=== PATIENT | female | born 1930 | race Caucasian/White ===

== ENCOUNTER 2017-12-23 01:37 | Inpatient (IN) ==
[2017-12-23] MEDS ORDERED: Ipratropium/Albuterol Neb 3 ML IH ONE (01:46)
[2017-12-23 02:13] LABS: ABG Base Excess 1 mEq/L (-2 to 3); ABG HCO3 26 mEq/L (21-27); ABG Oxygen Saturation 98 % (95-98); ABG PCO2 43 mmHg (35-45); ABG PO2 100 mmHg (85-104); ABG TCO2 28 mEq/L (20-26)
[2017-12-23 02:30] LABS: Bilirubin,Urine Negative (Negative); Blood,Urine Negative (Negative); Clarity,Urine Cloudy (Clear); Color,Urine Yellow (Yellow); Glucose,Urine (UA) Normal (Normal); Ketones,Urine Negative (Negative); Leukocyte Esterase,Urine Negative (Negative); Nitrite,Urine Negative (Negative); PH,Urine 6.5 pH Units (5.0-8.0); Protein,Urine 100 mg/dL (Neg-Trace); Specific Gravity,Urine 1.022 (1.010-1.025); Urobilinogen,Urine Normal (Normal)
[2017-12-23 02:32] LABS: Hyaline Casts,Urine Few per lpf (None-Few); RBC,Urine 0-3 per hpf (0-3); Squamous Epithelial Cell,Urine Many per lpf (None-Few)
[2017-12-23 02:34] LABS: Basophils % 0.1 %; Hematocrit 41.4 % (35.3-44.9); Hemoglobin 13.5 g/dL (11.5-15.4); Immature Granulocytes % 0.3 % (0-4); Lymphocytes % 6.6 %; Mean Corpuscular HGB Conc 32.6 g/dL (31.6-35.5); Mean Corpuscular Hemoglobin 28.8 pg (28.0-33.3); Mean Corpuscular Volume 88.5 fL (83.0-100.0); Mean Platelet Volume 12.1 fL (9.4-12.4); Monocytes # 2.4 K/mcL (0.0-1.3); Monocytes % 15.7 %; Neutrophils # 11.8 K/mcL (1.6-8.9); Platelet Count 190 K/mcL (140-400); Red Blood Count 4.68 M/mcL (3.82-4.97); Segmented Neutrophils % 77.3 %
[2017-12-23 02:42] LABS: Bacteria,Urine Many per hpf (None-Few)
[2017-12-23 02:49] LABS: Albumin 3.5 g/dL (3.5-5.7); Bilirubin,Total 0.3 mg/dL (0.3-1.0); Calcium 8.8 mg/dL (8.6-10.3); Globulin 3.4 g/dL (2.4-3.5); Potassium 4.2 mEq/L (3.5-5.1); Total Protein 6.9 g/dL (6.4-8.9)
[2017-12-23] MEDS ORDERED: Cefepime HCl 2,000 MG in Water for inj. (sterile) 20 ML IVP STA (04:28)
[2017-12-23] MEDS ORDERED: Levofloxacin 750 MG/150 ML 750 MG/150 ML BAG IVPB STA (04:28)
[2017-12-23] MEDS ORDERED: Vancomycin 1,000 MG in D5% in Water 250 ML IVPB ONE (04:33)
[2017-12-23] MEDS ORDERED: Aspirin 81 MG TAB.CHEW PO STA (04:46)
--- NOTE | 2017-12-23 04:46 | Emergency Department Note ---
Disposition Clinical Impression: Hypoxia, Influenza A Pneumonia Qualifiers: Pneumonia type: due to unspecified organism Laterality: left Lung location: lower lobe of lung Qualified Code(s): J18.1 - Lobar pneumonia, unspecified organism Disposition: Admitted As Inpatient Condition: Fair Referrals: Rommel España MD [Primary Care Provider] - Forms: ED Satisfaction Letter General Adult HPI - General Chief complaint: ED Shortness of Breath/Dyspnea Stated complaint: NU Time Seen by Provider: 12/23/17 01:41 Source: patient, family, EMS Mode of arrival: EMS Limitations: no limitations Nursing Notes Reviewed: Yes Vital Signs Reviewed: Yes - History of Present Illness HPI Narrative: Patient presents via EMS for evaluation of confusion as well as hypoxia. Patient does not normally wear oxygen and has initial pulse ox of 80%. Patient is normally alert and very talkative. Patient has been having increasing sleepiness and fatigue. Daughter is at bedside who states that she visits on a daily basis to the alf. Over the last 2 days the patient has had worsening overall symptoms. No specific productive cough. Just generalized unwell feeling with worsening respiratory status. Pain Scale: 0 - Related Data Home Medications Medication Instructions Recorded Confirmed Aspirin 81 mg PO DAILY 09/23/15 09/23/15 Losartan [Cozaar] 25 mg PO DAILY 09/23/15 09/23/15 Metoprolol [Lopressor] 50 mg PO BID 09/23/15 09/23/15 Divalproex (12 HR) [Depakote (12 250 mg PO DAILY 03/28/16 03/28/16 HR)] Donepezil HCl [Donepezil HCl Odt] 5 mg PO DAILY 03/28/16 03/28/16 hydrALAZINE [HydrALAZINE] 25 mg PO DAILY 03/28/16 03/28/16 risperiDONE [RisperDAL] 0.25 mg PO DAILY 03/28/16 03/28/16 Previous Rx's Medication Instructions Recorded Ciprofloxacin [Cipro] 500 mg PO BID #20 tablet 03/28/16 Allergies Allergy/AdvReac Type Severity Reaction Status Date / Time NSAIDS (Non-Steroidal Allergy See Verified 12/23/17 01:50 Anti-Inflamma Comments Penicillins Allergy See Verified 12/23/17 01:50 Comments Sulfa (Sulfonamide Allergy Hives Verified 12/23/17 01:50 Antibiotics) Review of Systems: CONSTITUTIONAL: Fatigue and weakness and chills No weight loss, fever HEENT: Eyes: No visual changes. Ears, Nose, Throat: No hearing loss, difficulty talking or unable to swallow. SKIN: No rash or itching. CARDIOVASCULAR: No chest pain, chest pressure or chest discomfort. No palpitations or edema. RESPIRATORY: Shortness of breath GASTROINTESTINAL: No anorexia, nausea, vomiting or diarrhea. No abdominal pain or blood. GENITOURINARY: No burning on urination or hematuria. NEUROLOGICAL: No headache, dizziness, syncope, paralysis, ataxia, numbness or tingling in the extremities. No change in bowel or bladder control. MUSCULOSKELETAL: No muscle pain, back pain, joint pain or stiffness. Past Medical History - Past Medical History Medical history: Reports: cancer, dementia, hypertension, other Surgical history: Reports: breast surgery, hysterectomy Psychiatric history: Reports: no psych history MANAGER TREASURY history: Reports: no MANAGER TREASURY history - Social History Smoking Status: Never smoker Alcohol use: Reports: none Drug use: Reports: none Physical Exam General: Arouses to verbal cues Head: Normocephalic Atraumatic Eyes: PERRL, EOMI ENT: Airway patent, no stridor Neck: supple, no meningismus Chest: Mild rhonchi Cardiac: Regular rhythm, no murmurs, rubs or gallops Abdomen: soft, nontender, nondistended; no guarding, rebound, or tenderness to percussion Musculoskeletal: Calves symmetric, nontender, no palpable cord Skin: No rash, normal skin tone Neuro: Alert and Oriented to person. No focal deficit, - General General appearance: lethargic Course - Reevaluation(s) Reevaluation #1: Influenza positive. Tamiflu given. Chest x-ray with concern for left lower lobe pneumonia. Elevated white count. Patient is from alf and broad- spectrum antibiotics have been given. Blood cultures obtained. Patient has elevated troponin with no acute EKG changes and no chest pain. Aspirin has been given. - Consultations Consultation #1: Discussed with Dr. Queen. Patient accepted for admission. Vital Signs Temperature 97.8 F 12/23/17 01:41 Pulse Rate 69 12/23/17 01:41 Respiratory Rate 19 12/23/17 01:41 Blood Pressure 110/69 12/23/17 01:41 O2 Sat by Pulse Oximetry 95 12/23/17 01:41 Temperature 97.8 F 12/23/17 01:41 Pulse Rate 59 12/23/17 04:30 Respiratory Rate 14 12/23/17 02:17 Blood Pressure 116/70 12/23/17 04:30 O2 Sat by Pulse Oximetry 96 12/23/17 04:30 Oxygen Delivery Oxygen Delivery Nasal Cannula Medical Decision Making - Medical Records Medical records reviewed: Yes I reviewed the patient's medical records. - Lab Data Lab results reviewed: Yes I reviewed the patient's lab results. Result diagrams: 12/23/17 02:25 12/23/17 02:25 Lab Results 12/23/17 12/23/17 12/23/17 Range/Units 02:09 02:17 02:25 WBC 15.3 H (4.3-11.1) K/mcL RBC 4.68 (3.82-4.97) M/mcL Hgb 13.5 (11.5-15.4) g/dL Hct 41.4 (35.3-44.9) % MCV 88.5 (83.0-100.0) fL MCH 28.8 (28.0-33.3) pg MCHC 32.6 (31.6-35.5) g/dL RDW 13.0 (11.5-14.5) % Plt Count 190 (140-400) K/mcL MPV 12.1 (9.4-12.4) fL Immature Gran % 0.3 (0-4) % Seg Neutrophils % 77.3 % Lymphocytes % 6.6 % Monocytes % 15.7 % Eosinophils % 0.0 % Basophils % 0.1 % Neutrophils # 11.8 H (1.6-8.9) K/mcL Lymphocytes # 1.0 (0.6-4.6) K/mcL Monocytes # 2.4 H (0.0-1.3) K/mcL Eosinophils # 0.0 (0.0-0.6) K/mcL Basophils # 0.0 (0.0-0.2) K/mcL ABG pH 7.40 (7.32-7.45) pH Units ABG pCO2 43 (35-45) mmHg ABG pO2 100 (85-104) mmHg ABG HCO3 26 (21-27) mEq/L ABG Total CO2 28 H (20-26) mEq/L ABG O2 Saturation 98 (95-98) % ABG Base Excess 1 (-2 to 3) mEq/L Sodium (136-145) mEq/L Potassium (3.5-5.1) mEq/L Chloride (98-107) mEq/L Carbon Dioxide (23-29) mEq/L BUN (8-23) mg/dL Creatinine (0.60-1.20) mg/dL Est GFR ( Amer) (> 60) Est GFR (Non-Af Amer) (> 60) BUN/Creatinine Ratio (6-26) Glucose (70-105) mg/dL Calculated Osmolality (280-300) Lactic Acid (0.5-2.2) mmol/L Calcium (8.6-10.3) mg/dL Total Bilirubin (0.3-1.0) mg/dL AST (13-39) Units/L ALT (7-52) Units/L Alkaline Phosphatase (34-104) Units/L Troponin I (< 0.04) ng/mL B-Natriuretic Peptide (Less than 100) pg/mL Serum Total Protein (6.4-8.9) g/dL Albumin (3.5-5.7) g/dL Globulin (2.4-3.5) g/dL Albumin/Globulin Ratio (1.1-2.2) Urine Color Yellow (Yellow) Urine Clarity Cloudy A (Clear) Urine pH 6.5 (5.0-8.0) pH Units Ur Specific Semmes 1.022 (1.010-1.025) Urine Protein 100 H (Neg-Trace) mg/dL Urine Glucose (UA) Normal (Normal) mg/dL Urine Ketones Negative (Negative) mg/dL Urine Blood Negative (Negative) Urine Nitrite Negative (Negative) Urine Bilirubin Negative (Negative) Urine Urobilinogen Normal (Normal) mg/dL Ur Leukocyte Esterase Negative (Negative) Urine Microscopic RBC 0-3 (0-3) per hpf Urine Microscopic WBC 5-15 H (0-3) per hpf Ur Squamous Epith Cells Many H (None-Few) per lpf Urine Bacteria Many H (None-Few) per hpf Hyaline Casts Few (None-Few) per lpf Ur Culture Indicated? NO (NO) 12/23/17 12/23/17 12/23/17 Range/Units 02:25 02:25 02:25 WBC (4.3-11.1) K/mcL RBC (3.82-4.97) M/mcL Hgb (11.5-15.4) g/dL Hct (35.3-44.9) % MCV (83.0-100.0) fL MCH (28.0-33.3) pg MCHC (31.6-35.5) g/dL RDW (11.5-14.5) % Plt Count (140-400) K/mcL MPV (9.4-12.4) fL Immature Gran % (0-4) % Seg Neutrophils % % Lymphocytes % % Monocytes % % Eosinophils % % Basophils % % Neutrophils # (1.6-8.9) K/mcL Lymphocytes # (0.6-4.6) K/mcL Monocytes # (0.0-1.3) K/mcL Eosinophils # (0.0-0.6) K/mcL Basophils # (0.0-0.2) K/mcL ABG pH (7.32-7.45) pH Units ABG pCO2 (35-45) mmHg ABG pO2 (85-104) mmHg ABG HCO3 (21-27) mEq/L ABG Total CO2 (20-26) mEq/L ABG O2 Saturation (95-98) % ABG Base Excess (-2 to 3) mEq/L Sodium (136-145) mEq/L Potassium (3.5-5.1) mEq/L Chloride (98-107) mEq/L Carbon Dioxide (23-29) mEq/L BUN (8-23) mg/dL Creatinine (0.60-1.20) mg/dL Est GFR ( Amer) (> 60) Est GFR (Non-Af Amer) (> 60) BUN/Creatinine Ratio (6-26) Glucose (70-105) mg/dL Calculated Osmolality (280-300) Lactic Acid 1.5 (0.5-2.2) mmol/L Calcium (8.6-10.3) mg/dL Total Bilirubin (0.3-1.0) mg/dL AST (13-39) Units/L ALT (7-52) Units/L Alkaline Phosphatase (34-104) Units/L Troponin I 0.11 H* (< 0.04) ng/mL B-Natriuretic Peptide 287 H (Less than 100) pg/mL Serum Total Protein (6.4-8.9) g/dL Albumin (3.5-5.7) g/dL Globulin (2.4-3.5) g/dL Albumin/Globulin Ratio (1.1-2.2) Urine Color (Yellow) Urine Clarity (Clear) Urine pH (5.0-8.0) pH Units Ur Specific Semmes (1.010-1.025) Urine Protein (Neg-Trace) mg/dL Urine Glucose (UA) (Normal) mg/dL Urine Ketones (Negative) mg/dL Urine Blood (Negative) Urine Nitrite (Negative) Urine Bilirubin (Negative) Urine Urobilinogen (Normal) mg/dL Ur Leukocyte Esterase (Negative) Urine Microscopic RBC (0-3) per hpf Urine Microscopic WBC (0-3) per hpf Ur Squamous Epith Cells (None-Few) per lpf Urine Bacteria (None-Few) per hpf Hyaline Casts (None-Few) per lpf Ur Culture Indicated? (NO) 12/23/17 Range/Units 02:25 WBC (4.3-11.1) K/mcL RBC (3.82-4.97) M/mcL Hgb (11.5-15.4) g/dL Hct (35.3-44.9) % MCV (83.0-100.0) fL MCH (28.0-33.3) pg MCHC (31.6-35.5) g/dL RDW (11.5-14.5) % Plt Count (140-400) K/mcL MPV (9.4-12.4) fL Immature Gran % (0-4) % Seg Neutrophils % % Lymphocytes % % Monocytes % % Eosinophils % % Basophils % % Neutrophils # (1.6-8.9) K/mcL Lymphocytes # (0.6-4.6) K/mcL Monocytes # (0.0-1.3) K/mcL Eosinophils # (0.0-0.6) K/mcL Basophils # (0.0-0.2) K/mcL ABG pH (7.32-7.45) pH Units ABG pCO2 (35-45) mmHg ABG pO2 (85-104) mmHg ABG HCO3 (21-27) mEq/L ABG Total CO2 (20-26) mEq/L ABG O2 Saturation (95-98) % ABG Base Excess (-2 to 3) mEq/L Sodium 135 L (136-145) mEq/L Potassium 4.2 (3.5-5.1) mEq/L Chloride 102 (98-107) mEq/L Carbon Dioxide 24 (23-29) mEq/L BUN 35 H (8-23) mg/dL Creatinine 1.43 H (0.60-1.20) mg/dL Est GFR ( Amer) 42 L (> 60) Est GFR (Non-Af Amer) 35 L (> 60) BUN/Creatinine Ratio 24 (6-26) Glucose 135 H (70-105) mg/dL Calculated Osmolality 290 (280-300) Lactic Acid (0.5-2.2) mmol/L Calcium 8.8 (8.6-10.3) mg/dL Total Bilirubin 0.3 (0.3-1.0) mg/dL AST 29 (13-39) Units/L ALT 16 (7-52) Units/L Alkaline Phosphatase 57 (34-104) Units/L Troponin I (< 0.04) ng/mL B-Natriuretic Peptide (Less than 100) pg/mL Serum Total Protein 6.9 (6.4-8.9) g/dL Albumin 3.5 (3.5-5.7) g/dL Globulin 3.4 (2.4-3.5) g/dL Albumin/Globulin Ratio 1.0 L (1.1-2.2) Urine Color (Yellow) Urine Clarity (Clear) Urine pH (5.0-8.0) pH Units Ur Specific [place]mes (1.010-1.025) Urine Protein (Neg-Trace) mg/dL Urine Glucose (UA) (Normal) mg/dL Urine Ketones (Negative) mg/dL Urine Blood (Negative) Urine Nitrite (Negative) Urine Bilirubin (Negative) Urine Urobilinogen (Normal) mg/dL Ur Leukocyte Esterase (Negative) Urine Microscopic RBC (0-3) per hpf Urine Microscopic WBC (0-3) per hpf Ur Squamous Epith Cells (None-Few) per lpf Urine Bacteria (None-Few) per hpf Hyaline Casts (None-Few) per lpf Ur Culture Indicated? (NO) - Radiology Data Radiology results reviewed: Yes I reviewed the patient's radiology results. - EKG Data EKG #1 EKG attestation: Yes I reviewed and interpreted this EKG. EKG results narrative: EKG shows sinus rhythm with ventricular rate of 67. MN 164. QRS 86. QTC 430. No significant elevations or depressions. No changes from previous of 07/15/12 Attestation Statement - Attestation Attestation: I, Miko Howard MD, personally evaluated this patient and discussed their management with the resident physician. I reviewed the resident's note and agree with the documented findings, medical decision making, and plan of care. 87-year-old female presents to the emergency department from a local alf for decreased mental status and increased generalized weakness over the past few days. Decreased oral intake. Also tonight her oxygen level became low. Patient really unable to provide any significant history or review of systems. Daughter is present and states that normally she is awake and alert and carries on a normal conversation. On examination patient is a well-developed obese elderly female in no acute distress. She does respond to verbal stimuli her eyes. There is no cyanosis or diaphoresis. Breath sounds are clear and equal bilaterally. Heart regular rate and rhythm. Abdomen soft with normal bowel sounds. EKG shows a normal sinus rhythm with a heart rate of 67. Nonspecific ST and T- wave changes with no acute ST elevations or depressions. Chest x-ray shows a left lower lobe consolidation. Labs reviewed. Troponin 0.11. Positive for influenza type A. The hospitalist, Dr. Corona, was consulted and accepted admission of the patient.
--- NOTE | 2017-12-23 08:13 | Internal Med History&Physical ---
Date of Encounter: 12/23/17 Time of Encounter: 08:00 Assessment and Plan (1) Influenza A Current visit: Yes Status: Acute -Will continue a 5 day course of Tamiflu -Will wean supplemental oxygen as tolerates (2) HAP (hospital-acquired pneumonia) Current visit: Yes Status: Acute -Chest x-ray showed a focal area of consolidation involving the left lower lobe , concerning for pneumonia -Will cover with IV vancomycin, Levaquin and Zosyn -Sputum cultures pending (3) Acute respiratory failure with hypoxia Current visit: Yes Status: Acute -Secondary to the above -Will continue supplemental oxygen to wean as tolerates (4) Elevated troponin Current visit: Yes Status: Acute -Suspect secondary to demand ischemia due to the above; trend serial troponinsand monitor on telemetry (5) Acute renal failure (ARF) Current visit: Yes Status: Acute -Suspect secondary to dehydration with a BUN of 35,Creatinine of 1.43 with a GFR 35 -Will give gentle IV fluids and monitor renal function Qualifiers: Acute renal failure type: unspecified Qualified Code(s): N17.9 - Acute kidney failure, unspecified (6) DVT prophylaxis Current visit: Yes Status: Acute -Subcutaneous heparin Internal Medicine - H&P: HPI Chief complaint: Confusion/shortness of breath Admitted From: Long-term Nursing Facility Plans for Post Hospital Care: Transfer [facility] History of present illness: Patient is an 87-year-old female with past medical history significant for hypertension and dementia who [facility] due to confusion and shortness of breath. Family not present at bedside and patient has dementia so history taking from EMR. Per EMR, patient was [facility] by EMS due to a 2 day history of confusion, shortness of breath and hypoxia. In the ER, patient was found to be in acute hypoxic respiratory failure and positive for influenza A in addition to a focal area of consolidation involving the left lower lobe, concerning for pneumonia on chest x-ray. Patient was also found to be in acute renal failure as well as elevated cardiac biomarker. Patient received a dose of Levaquin, vancomycin and Tamiflu in the ER in addition to DuoNeb. Patient will be admitted to the medical surgical floor for acute hypoxic respiratory failure secondary to influenza A and hospital-acquired pneumonia. Past Med Surg Social Fam HX - Past Medical History Medical history: cancer, dementia, hypertension, other Psychiatric history: no psych history - Past Surgical History Surgical History: breast surgery, hysterectomy - Social History Smoking Status: Never smoker Alcohol use: none Drug use: none Internal Medicine - H&P: Meds Aspirin 81 mg PO DAILY 09/23/15 [History] Losartan [Cozaar] 25 mg PO DAILY 09/23/15 [History] Metoprolol [Lopressor] 50 mg PO BID 09/23/15 [History] Ciprofloxacin [Cipro] 500 mg PO BID #20 tablet 03/28/16 [Rx] Divalproex (12 HR) [Depakote (12 HR)] 250 mg PO DAILY 03/28/16 [History] Donepezil HCl [Donepezil HCl Odt] 5 mg PO DAILY 03/28/16 [History] hydrALAZINE [HydrALAZINE] 25 mg PO DAILY 03/28/16 [History] risperiDONE [RisperDAL] 0.25 mg PO DAILY 03/28/16 [History] 3 Allergy/AdvReac Type Severity Reaction Status Date / Time NSAIDS (Non-Steroidal Allergy See Verified 12/23/17 01:50 Anti-Inflamma Comments Penicillins Allergy See Verified 12/23/17 01:50 Comments Sulfa (Sulfonamide Allergy Hives Verified 12/23/17 01:50 Antibiotics) ROS unobtainable: due to mental status All Systems PM: A 10-system review of systems was performed and is negative for pertinent findings except as documented above in the HPI. - Constitutional Vitals: Temp Pulse Resp BP Pulse Ox 98.1 F 74 14 119/72 97 12/23/17 07:35 12/23/17 07:35 12/23/17 07:35 12/23/17 07:35 12/23/17 07:35 General appearance: Present: A&O X 3, no acute distress - Head Head exam: Present: normocephalic - Eye Eye exam: Present: normal appearance - ENT ENT exam: Present: mucous membranes dry - Respiratory Respiratory exam: Absent: accessory muscle use (Left-sided basilar crackles), respiratory distress, rhonchi, stridor, wheezes - Cardiovascular Cardiovascular exam: Present: RRR, +S1, +S2. Absent: diastolic murmur, gallop, rubs, systolic murmur - GI/Abdominal GI/Abdominal exam: Present: normal bowel sounds, soft, no peritoneal signs. Absent: distended, tenderness - Extremities Exam Extremities exam: Absent: pedal edema - Neurological Exam Neurological exam: Present: oriented X3 - Psychiatric Psychiatric exam: Present: normal mood - Skin Skin exam: Present: normal color Internal Med - H&P Results - Labs CBC & Chem 7: 12/23/17 02:25 0218 02:25
[2017-12-23] MEDS ORDERED: Naloxone 0.4 MG/ML INJ IVP PRN (08:31)
[2017-12-23] MEDS ORDERED: 0.9 % Sodium Chloride 1,000 ML IVC SCH (08:45)
[2017-12-23] MEDS ORDERED: Vancomycin 1,250 MG in D5% in Water 250 ML IVPB SCH (09:00)
[2017-12-23] MEDS ORDERED: Levofloxacin 750 MG/150 ML 750 MG/150 ML BAG IVPB SCH (09:00)
[2017-12-23] MEDS: Oseltamivir Phosphate 30 MG CAPSULE PO SCH (09:22)
[2017-12-23] MEDS ORDERED: Ipratropium/Albuterol Neb 3 ML IH SCH (12:00)
[2017-12-23] MEDS ORDERED: Ipratropium/Albuterol Neb 3 ML IH PRN (14:15)
[2017-12-23] MEDS: *HR* Heparin 5,000 UNIT/ML VIAL SQ SCH (17:42)
[2017-12-24] MEDS: Vancomycin 1,250 MG in D5% in Water 250 ML IVPB SCH (00:20)
[2017-12-24 03:54] LABS: Basophils % 0.2 %; Hematocrit 39.7 % (35.3-44.9); Immature Granulocytes % 0.4 % (0-4); Lymphocytes # 0.9 K/mcL (0.6-4.6); Lymphocytes % 8.1 %; Mean Corpuscular HGB Conc 32.7 g/dL (31.6-35.5); Mean Corpuscular Hemoglobin 28.4 pg (28.0-33.3); Mean Corpuscular Volume 86.7 fL (83.0-100.0); Mean Platelet Volume 12.3 fL (9.4-12.4); Monocytes # 1.3 K/mcL (0.0-1.3); Monocytes % 11.6 %; Neutrophils # 9.2 K/mcL (1.6-8.9); Platelet Count 176 K/mcL (140-400); Red Blood Count 4.58 M/mcL (3.82-4.97); Segmented Neutrophils % 79.7 %
[2017-12-24 04:18] LABS: BUN/Creatinine Ratio 32 (6-26); Blood Urea Nitrogen 32 mg/dL (8-23); Calcium 8.4 mg/dL (8.6-10.3); Carbon Dioxide 28 mEq/L (23-29); Chloride 99 mEq/L (98-107); Glucose 130 mg/dL (70-105); Osmolality,Calculated 285 (280-300); Potassium 3.7 mEq/L (3.5-5.1); Sodium 133 mEq/L (136-145); eGFR For African Americans > 60 (> 60); eGFR For Non-African Americans 53 (> 60)
[2017-12-24] MEDS: *HR* Heparin 5,000 UNIT/ML VIAL SQ SCH ×2 (06:04→18:58)
[2017-12-24] MEDS ORDERED: Aminoglycoside Consult 1 EACH MC ONE (08:14)
--- NOTE | 2017-12-24 09:35 | Internal Med Progress Note ---
<Epi Best - Last Filed: 12/24/17 14:27> Date of Encounter: 12/24/17 Time of Encounter: 09:35 - Assessment and plan (1) Acute respiratory failure with hypoxia Current Visit: Yes Status: Acute Assessment and plan: - Pt presented with complaint of SOB currently requiring 4 L supplemental O2. - No reported home O2 requirement, however pt is notably a poor historian. - Likely secondary to Influenza A vs HAP as below. - ABG in ED unremarkable. Plan - Management as below - Continue supplemental O2 as needed. (2) HAP (hospital-acquired pneumonia) Current Visit: Yes Status: Acute Assessment and plan: - Pt comes from senior care. - Denies symptoms of SOB, cough, fevers, chills but she is coughing today during interview. - CXR shows LLL consolidation consistent with PNA. - Elevated WBC of 15.3 on admission, down to 11.6 this AM - Started on levaquin, vancomycin Plan - Continue levaquin, vancomycin as she is clinically improving. - Can de-escalate tomorrow if continues to improve. - Supplemental O2 as needed. - Continue to monitor. (3) Influenza A Current Visit: Yes Status: Acute Assessment and plan: -Rapid nasal swab positive for Flu A. - Pt currently denying any symptoms. - Started on Tamiflu in ED, will continue in addition to supportive care. (4) Acute renal failure (ARF) Current Visit: Yes Status: Resolved Assessment and plan: -BUN/Cr of 32/1.00 this AM - Improved Cr on admission of 1.43 - Unsure of baseline Cr levels. Likely resolved back to baseline - Likely secondary to hypovolemia. - Will continue to monitor and avoid nephrotoxic agents as able. Qualifiers: Acute renal failure type: unspecified Qualified Code(s): N17.9 - Acute kidney failure, unspecified (5) Elevated troponin Current Visit: Yes Status: Acute Assessment and plan: - Troponin of 0.11/0.08/0.05 - Likely related to demand ischemia in the setting of hypoxia and Acute renal failure - No complaints of CP - Will continue to monitor (6) DVT prophylaxis Current Visit: Yes Status: Acute Assessment and plan: Heparin 5000 units q12 hours - Time Spent With Patient 25 - 35 minutes - Subjective Interval history: patient was seen and examined at bedside this morning. She reports that she does not remember why she is in the hospital. She denies any current symptoms of SOB, fevers, chills, nausea, vomiting, diarrhea, cough. She was observed to be coughing during interview this morning. - Constitutional Vitals: Temp Pulse Resp BP Pulse Ox 97.9 F 83 16 143/81 95 12/24/17 07:23 12/24/17 07:23 12/24/17 07:23 12/24/17 07:23 12/24/17 07:23 General appearance: Present: A&O X 3, no acute distress Exam: Gen.: Vitals noted. No acute distress. HEENT: PERRL/EOMI, oropharynx clear, Normocephalic, atraumatic, MMM Cardiac: RRR, no murmur, +S1/S2 Pulmonary: Mild Rales diffusely. equal chest expansion Abdomen: soft, nontender, BS noted, no guarding MSK: ROM intact, no joint swelling noted Extremities: no BLE edema, nontender calf, no cyanosis or clubbing Neuro:moves all extremities, no focal deficits Psych: Appropriate mood and behavior Internal Medicine: Result - Labs CBC & Chem 7: 12/24/17 02:33 12/24/17 02:33 Labs: Short CBC 12/24/17 Range/Units 02:33 WBC 11.6 H (4.3-11.1) K/mcL Hgb 13.0 (11.5-15.4) g/dL Hct 39.7 (35.3-44.9) % Plt Count 176 (140-400) K/mcL Neutrophils # 9.2 H (1.6-8.9) K/mcL BMP 12/24/17 02:33 Sodium 133 L Potassium 3.7 Chloride 99 Carbon Dioxide 28 BUN 32 H Creatinine 1.00 Glucose 130 H Calcium 8.4 L Cardiac Enzymes 12/23/17 12/23/17 12/23/17 Range/Units 09:32 14:45 21:19 Troponin I 0.08 H* 0.08 H* 0.05 H* (< 0.04) ng/mL - ABG Interpretation ABG results: ABG ABG pH 7.40 pH Units (7.32-7.45) 12/23/17 02:09 ABG pCO2 43 mmHg (35-45) 12/23/17 02:09 ABG pO2 100 mmHg (85-104) 12/23/17 02:09 ABG O2 Saturation 98 % (95-98) 12/23/17 02:09 Consult Discharge Plan - Plan Referrals: Rommel España MD [Primary Care Provider] - <Rafy Huizar - Last Filed: 12/24/17 16:49> Date of Encounter: 12/24/17 - Constitutional Vitals: Temp Pulse Resp BP Pulse Ox 97.5 F L 62 16 133/62 95 12/24/17 15:33 12/24/17 15:33 12/24/17 15:33 12/24/17 15:33 12/24/17 15:33 Internal Medicine: Result - Labs CBC & Chem 7: 12/24/17 02:33 12/24/17 02:33 - ABG Interpretation ABG results: ABG ABG pH 7.40 pH Units (7.32-7.45) 12/23/17 02:09 ABG pCO2 43 mmHg (35-45) 12/23/17 02:09 ABG pO2 100 mmHg (85-104) 12/23/17 02:09 ABG O2 Saturation 98 % (95-98) 12/23/17 02:09 - Attending Attestation I examined this patient and my medical decision-making was reviewed with the Resident Physician. I agree with the documented findings, disposition and treatment plan as described except to the extent set forth below. 87/female Admitted with worsening CHF exacerbation. Presently on diuretics. Multiple admissions in the past. She needs to be enrolled in a heart failure clinic/program.
[2017-12-24] MEDS: Oseltamivir Phosphate 30 MG CAPSULE PO SCH ×2 (11:32→22:21)
[2017-12-24] MEDS: hydrALAZINE 25 MG TABLET PO SCH ×2 (18:58→22:21)
[2017-12-24] MEDS: Divalproex (12 HR) 250 MG TABLET PO SCH (22:45)
[2017-12-25] MEDS: Vancomycin 1,250 MG in D5% in Water 250 ML IVPB SCH (00:40)
[2017-12-25 04:21] LABS: Basophils % 0.3 %; Eosinophils % 0.5 %; Hematocrit 37.1 % (35.3-44.9); Hemoglobin 12.1 g/dL (11.5-15.4); Immature Granulocytes % 0.3 % (0-4); Lymphocytes # 1.5 K/mcL (0.6-4.6); Mean Corpuscular HGB Conc 32.6 g/dL (31.6-35.5); Mean Corpuscular Hemoglobin 28.3 pg (28.0-33.3); Mean Corpuscular Volume 86.7 fL (83.0-100.0); Mean Platelet Volume 12.5 fL (9.4-12.4); Monocytes # 1.1 K/mcL (0.0-1.3); Monocytes % 17.5 %; Neutrophils # 3.8 K/mcL (1.6-8.9); Platelet Count 189 K/mcL (140-400); Red Blood Count 4.28 M/mcL (3.82-4.97); Segmented Neutrophils % 58.4 %
[2017-12-25 05:00] LABS: BUN/Creatinine Ratio 39 (6-26); Blood Urea Nitrogen 25 mg/dL (8-23); Calcium 8.5 mg/dL (8.6-10.3); Carbon Dioxide 28 mEq/L (23-29); Chloride 103 mEq/L (98-107); Glucose 112 mg/dL (70-105); Osmolality,Calculated 285 (280-300); Sodium 135 mEq/L (136-145); eGFR For African Americans > 60 (> 60); eGFR For Non-African Americans > 60 (> 60)
[2017-12-25] MEDS ORDERED: Levofloxacin 750 MG/150 ML 750 MG/150 ML BAG IVPB SCH (05:00)
[2017-12-25] MEDS: *HR* Heparin 5,000 UNIT/ML VIAL SQ SCH ×2 (06:02→17:13)
--- NOTE | 2017-12-25 08:45 | Internal Med Progress Note ---
<Epi Best - Last Filed: 12/25/17 10:40> Date of Encounter: 12/25/17 Time of Encounter: 08:43 - Assessment and plan (1) Acute respiratory failure with hypoxia Current Visit: Yes Status: Acute Assessment and plan: - Pt presented with complaint of SOB currently requiring 2 L supplemental O2. - No reported home O2 requirement, however pt is notably a poor historian. - Likely secondary to Influenza A vs HAP as below. - ABG in ED unremarkable. Plan - Management as below - Continue supplemental O2 as needed. (2) HAP (hospital-acquired pneumonia) Current Visit: Yes Status: Acute Assessment and plan: - Pt comes from senior care. - Denies symptoms of SOB, cough, fevers, chills but she is coughing today during interview. - CXR shows LLL consolidation consistent with PNA. - Elevated WBC of 15.3 on admission, has downtrended to 6.5 this AM. - Started on levaquin, vancomycin in ED Plan - Continue levaquin. Will discontinue vancomycin today. - Supplemental O2 as needed. - Continue to monitor. (3) Influenza A Current Visit: Yes Status: Acute Assessment and plan: -Rapid nasal swab positive for Flu A. - Pt currently denying any symptoms. - Started on Tamiflu in ED, will continue in addition to supportive care. (4) Acute renal failure (ARF) Current Visit: Yes Status: Resolved Assessment and plan: -BUN/Cr of 25/0.64 this AM - Improved Cr on admission of 1.43 - Unsure of baseline Cr levels. Likely resolved back to baseline - Likely secondary to hypovolemia. - Will continue to monitor and avoid nephrotoxic agents as able. Qualifiers: Acute renal failure type: unspecified Qualified Code(s): N17.9 - Acute kidney failure, unspecified (5) Elevated troponin Current Visit: Yes Status: Acute Assessment and plan: - Troponin of 0.11/0.08/0.05 - Likely related to demand ischemia in the setting of hypoxia and Acute renal failure - No complaints of CP - Will continue to monitor (6) DVT prophylaxis Current Visit: Yes Status: Acute Assessment and plan: Heparin 5000 units q12 hours - Time Spent With Patient less than 15 minutes - Subjective Interval history: patient was seen and examined at bedside this morning. She states that she feels good today, about the same as yesterday. States her breathing is much better. Continues to deny any symptoms of cough, SOB, fevers, chills, chest pain. States that she comes from a senior care and is eager to get back. Does not use supplemental O2. - Constitutional Vitals: Temp Pulse Resp BP Pulse Ox 97.9 F 66 18 169/93 97 12/25/17 07:45 12/25/17 07:45 12/25/17 07:45 12/25/17 07:45 12/25/17 07:45 General appearance: Present: A&O X 3, no acute distress Exam: Gen.: Vitals noted. No acute distress. AAOx3 HEENT: PERRL/EOMI, oropharynx clear, Normocephalic, atraumatic, MMM Cardiac: RRR, no murmur, +S1/S2 Pulmonary: Rhonchi in expiration, most prominent on LLL. equal chest expansion Abdomen: soft, nontender, BS noted, no guarding MSK: ROM intact, no joint swelling noted Extremities: no BLE edema, nontender calf, no cyanosis or clubbing Neuro: A&Ox3, moves all extremities, no focal deficits Psych: Appropriate mood and behavior Internal Medicine: Result - Labs CBC & Chem 7: 12/25/17 03:00 12/25/17 03:00 Labs: Short CBC 12/25/17 Range/Units 03:00 WBC 6.5 (4.3-11.1) K/mcL Hgb 12.1 (11.5-15.4) g/dL Hct 37.1 (35.3-44.9) % Plt Count 189 (140-400) K/mcL Neutrophils # 3.8 (1.6-8.9) K/mcL BMP 12/25/17 03:00 Sodium 135 L Potassium 4.0 Chloride 103 Carbon Dioxide 28 BUN 25 H Creatinine 0.64 Glucose 112 H Calcium 8.5 L - ABG Interpretation ABG results: ABG ABG pH 7.40 pH Units (7.32-7.45) 12/23/17 02:09 ABG pCO2 43 mmHg (35-45) 12/23/17 02:09 ABG pO2 100 mmHg (85-104) 12/23/17 02:09 ABG O2 Saturation 98 % (95-98) 12/23/17 02:09 Consult Discharge Plan - Plan Referrals: Rommel España MD [Primary Care Provider] - <Manjinder Kolb - Last Filed: 12/25/17 18:05> Date of Encounter: 12/25/17 - Assessment and plan (1) Acute respiratory failure with hypoxia Current Visit: Yes Status: Acute (2) Influenza A Current Visit: Yes Status: Acute (3) Pneumonia Current Visit: Yes Status: Suspected Qualifiers: Pneumonia type: due to other aerobic Gram-negative bacteria Laterality: left Lung location: lower lobe of lung Qualified Code(s): J15.6 - Pneumonia due to other Gram-negative bacteria (4) Hypertension Current Visit: Yes Status: Chronic Qualifiers: Hypertension type: essential hypertension Qualified Code(s): I10 - Essential (primary) hypertension (5) Dementia Current Visit: Yes Status: Acute Qualifiers: Dementia type: Alzheimer's disease Alzheimer's disease onset: late-onset Dementia behavioral disturbance: without behavioral disturbance Qualified Code (s): G30.1 - Alzheimer's disease with late onset; F02.80 - Dementia in other diseases classified elsewhere without behavioral disturbance; F02.80 - Dementia in other diseases classified elsewhere without behavioral disturbance; F02.80 - Dementia in other diseases classified elsewhere without behavioral disturbance - Time Spent With Patient My time was 32 minutes - Constitutional Vitals: Temp Pulse Resp BP Pulse Ox 97.5 F L 60 18 180/81 94 12/25/17 16:48 12/25/17 16:48 12/25/17 16:48 12/25/17 16:48 12/25/17 16:48 Internal Medicine: Result - Labs CBC & Chem 7: 12/25/17 03:00 12/25/17 03:00 Labs: Short CBC 12/25/17 Range/Units 03:00 WBC 6.5 (4.3-11.1) K/mcL Hgb 12.1 (11.5-15.4) g/dL Hct 37.1 (35.3-44.9) % Plt Count 189 (140-400) K/mcL Neutrophils # 3.8 (1.6-8.9) K/mcL BMP 12/25/17 03:00 Sodium 135 L Potassium 4.0 Chloride 103 Carbon Dioxide 28 BUN 25 H Creatinine 0.64 Glucose 112 H Calcium 8.5 L - ABG Interpretation ABG results: ABG ABG pH 7.40 pH Units (7.32-7.45) 12/23/17 02:09 ABG pCO2 43 mmHg (35-45) 12/23/17 02:09 ABG pO2 100 mmHg (85-104) 12/23/17 02:09 ABG O2 Saturation 98 % (95-98) 12/23/17 02:09 - Attending Attestation I examined this patient and my medical decision-making was reviewed with the Resident Physician on 12/25/17. I agree with the documented findings, disposition and treatment plan as described except to the extent set forth below. Ms Sofia is currently admitted for acute influenza A, pneumonia and hypoxia. She remains moderate to high risk due to potential for worsening clinical status. Ms Sofia is starting to feel somewhat better. She is still wheezing today. No fever. Still coughing. No pain. Exam alert. Comfortable Mucus membranes dry Heart reg Lungs with end exp wheeze Abd soft Trace edema I/P 1. Hypoxia 2. Influenza Further diagnoses and plan as above Daughter updated at bedside.
[2017-12-25] MEDS: Oseltamivir Phosphate 30 MG CAPSULE PO SCH ×2 (09:21→21:01)
[2017-12-25] MEDS: risperiDONE 0.25 MG TABLET PO SCH (09:27)
[2017-12-25] MEDS: Aspirin 81 MG TAB.CHEW PO SCH (09:28)
[2017-12-25] MEDS: Divalproex (12 HR) 250 MG TABLET PO SCH ×2 (09:28→21:00)
[2017-12-25] MEDS: hydrALAZINE 25 MG TABLET PO SCH ×3 (09:28→21:00)
--- NOTE | 2017-12-25 20:20 | Electrocardiograph Report ---
[place] [id number] Test Date: 2017-12-23 Pat Name: Marissa Sofia Department: 102 Room: 2NE23 Gender: F City Supervisor: : [id number] Requested By: Tio Nance Order Number: [id number] Reading MD: Guero Paris MD Measurements Intervals [place] Rate: 67 P: -17 ID: 164 QRS: -36 QRSD: 86 T: -14 QT: 415 QTc: 430 Interpretive Statements SINUS RHYTHM MARKED LEFT AXIS DEVIATION Poor R wave progression BASELINE ARTIFACT Electronically Signed On 12-25-2017 20:19:14 EST by Guero Paris MD
[2017-12-25] MEDS: Acetaminophen 325 MG TABLET PO PRN (21:00)
[2017-12-26] MEDS: *HR* Heparin 5,000 UNIT/ML VIAL SQ SCH ×2 (05:30→18:39)
[2017-12-26] MEDS: Aspirin 81 MG TAB.CHEW PO SCH (10:40)
[2017-12-26] MEDS: hydrALAZINE 25 MG TABLET PO SCH ×3 (10:40→21:48)
[2017-12-26] MEDS: risperiDONE 0.25 MG TABLET PO SCH (10:41)
[2017-12-26] MEDS: Divalproex (12 HR) 250 MG TABLET PO SCH ×2 (10:41→21:48)
[2017-12-26] MEDS: Oseltamivir Phosphate 30 MG CAPSULE PO SCH ×2 (10:41→21:48)
[2017-12-26] MEDS ORDERED: hydrALAZINE 25 MG TABLET PO ONE (16:10)
--- NOTE | 2017-12-26 17:25 | Internal Med Progress Note ---
<Epi Best - Last Filed: 12/26/17 17:22> Date of Encounter: 12/26/17 Time of Encounter: 10:00 - Assessment and plan (1) Acute respiratory failure with hypoxia Current Visit: Yes Status: Acute Assessment and plan: - Pt presented with complaint of SOB currently requiring 4 L supplemental O2. - No reported home O2 requirement, however pt is notably a poor historian. - Likely secondary to Influenza A vs HAP as below. - ABG in ED unremarkable. Plan - Management as below - Continue supplemental O2 as needed. (2) HAP (hospital-acquired pneumonia) Current Visit: Yes Status: Acute Assessment and plan: - Pt comes from half-way. - Denies symptoms of SOB, cough, fevers, chills but she is coughing today during interview. - CXR shows LLL consolidation consistent with PNA. - Elevated WBC of 15.3 on admission, has downtrended to 6.5 this AM. - Started on levaquin, vancomycin in ED Plan - Continue levaquin. - Supplemental O2 as needed. Attempt to wean back to baseline Room air. - Continue to monitor. (3) Influenza A Current Visit: Yes Status: Acute Assessment and plan: -Rapid nasal swab positive for Flu A. - Pt currently denying any symptoms. - Started on Tamiflu in ED, will continue in addition to supportive care. (4) Acute renal failure (ARF) Current Visit: Yes Status: Resolved Assessment and plan: -BUN/Cr of 25/0.64 this AM - Improved Cr on admission of 1.43 - Unsure of baseline Cr levels. Likely resolved back to baseline - Likely secondary to hypovolemia. - Will continue to monitor and avoid nephrotoxic agents as able. Qualifiers: Acute renal failure type: unspecified Qualified Code(s): N17.9 - Acute kidney failure, unspecified (5) Elevated troponin Current Visit: Yes Status: Acute Assessment and plan: - Troponin of 0.11/0.08/0.05 - Likely related to demand ischemia in the setting of hypoxia and Acute renal failure - No complaints of CP - Will continue to monitor (6) Hypertension Current Visit: Yes Status: Chronic Assessment and plan: - Bp has been difficult to control on this admission. - Most recently 174/89 - Takes hydralazine, metoprolol, losartan at home - Continue home meds - Will increase home hydralazine to 50 mg TID. - IV hydralazine PRN HTN Qualifiers: Hypertension type: essential hypertension Qualified Code(s): I10 - Essential (primary) hypertension (7) Dementia Current Visit: Yes Status: Chronic Assessment and plan: Stable. Continue home meds. Qualifiers: Dementia type: Alzheimer's disease Alzheimer's disease onset: late-onset Dementia behavioral disturbance: without behavioral disturbance Qualified Code (s): G30.1 - Alzheimer's disease with late onset; F02.80 - Dementia in other diseases classified elsewhere without behavioral disturbance; F02.80 - Dementia in other diseases classified elsewhere without behavioral disturbance; F02.80 - Dementia in other diseases classified elsewhere without behavioral disturbance (8) DVT prophylaxis Current Visit: Yes Status: Acute Assessment and plan: Heparin 5000 units q12 hours - Time Spent With Patient 25 - 35 minutes - Subjective Interval history: patient was seen and examined at bedside this morning. She states that she feels good today, about the same as yesterday. States her breathing is much better. Continues to deny any symptoms of cough, SOB, fevers, chills, chest pain. States that she comes from a half-way and is eager to get back. Does not use supplemental O2. No new complaints. - Constitutional Vitals: Temp Pulse Resp BP Pulse Ox 97.8 F 61 16 175/94 95 12/26/17 15:43 12/26/17 15:43 12/26/17 15:43 12/26/17 15:43 12/26/17 15:43 General appearance: Present: A&O X 3, no acute distress Exam: Gen.: Vitals noted. No acute distress. AAOx3 HEENT: PERRL/EOMI, oropharynx clear, Normocephalic, atraumatic Cardiac: RRR, no murmur, +S1/S2 Pulmonary: CTA bilaterally, no wheezes, rales or rhonchi, equal chest expansion MSK: ROM intact, no joint swelling noted Extremities: no BLE edema, nontender calf, no cyanosis or clubbing Neuro: A&Ox3, moves all extremities, no focal deficits Psych: Appropriate mood and behavior Internal Medicine: Result - Labs CBC & Chem 7: 12/25/17 03:00 12/25/17 03:00 - ABG Interpretation ABG results: ABG ABG pH 7.40 pH Units (7.32-7.45) 12/23/17 02:09 ABG pCO2 43 mmHg (35-45) 12/23/17 02:09 ABG pO2 100 mmHg (85-104) 12/23/17 02:09 ABG O2 Saturation 98 % (95-98) 12/23/17 02:09 Consult Discharge Plan - Plan Referrals: Rommel España MD [Primary Care Provider] - <Manjinder Kolb - Last Filed: 12/26/17 17:58> Date of Encounter: 12/26/17 - Assessment and plan (1) Acute respiratory failure with hypoxia Current Visit: Yes Status: Acute (2) Influenza A Current Visit: Yes Status: Acute (3) Pneumonia Current Visit: Yes Status: Suspected Qualifiers: Pneumonia type: due to other aerobic Gram-negative bacteria Laterality: left Lung location: lower lobe of lung Qualified Code(s): J15.6 - Pneumonia due to other Gram-negative bacteria (4) Hypertension Current Visit: Yes Status: Chronic Qualifiers: Hypertension type: essential hypertension Qualified Code(s): I10 - Essential (primary) hypertension (5) Dementia Current Visit: Yes Status: Chronic Qualifiers: Dementia type: Alzheimer's disease Alzheimer's disease onset: late-onset Dementia behavioral disturbance: without behavioral disturbance Qualified Code (s): G30.1 - Alzheimer's disease with late onset; F02.80 - Dementia in other diseases classified elsewhere without behavioral disturbance; F02.80 - Dementia in other diseases classified elsewhere without behavioral disturbance; F02.80 - Dementia in other diseases classified elsewhere without behavioral disturbance - Constitutional Vitals: Temp Pulse Resp BP Pulse Ox 97.8 F 61 16 175/94 95 12/26/17 15:43 12/26/17 15:43 12/26/17 15:43 12/26/17 15:43 12/26/17 15:43 Internal Medicine: Result - Labs CBC & Chem 7: 12/25/17 03:00 12/25/17 03:00 - ABG Interpretation ABG results: ABG ABG pH 7.40 pH Units (7.32-7.45) 12/23/17 02:09 ABG pCO2 43 mmHg (35-45) 12/23/17 02:09 ABG pO2 100 mmHg (85-104) 12/23/17 02:09 ABG O2 Saturation 98 % (95-98) 12/23/17 02:09 - Attending Attestation I examined this patient and my medical decision-making was reviewed with the Resident Physician on 12/26/17. I agree with the documented findings, disposition and treatment plan as described except to the extent set forth below. Ms Sofia is currently admitted for acute influenza and pneumonia. She remains moderate to high risk due to potential for worsening clinical status. Ms Sofia is resting comfortably at this time and is only complaining of feeling cold. No fever. Breathing seems somewhat better today. Exam alert. Comfortable Mucus membranes dry Heart distant Scant wheeze abd soft I/P 1. Influenza 2. PNA Further diagnoses and plan as above Anticipate d/c to SNF tomorrow.
[2017-12-27] MEDS: *HR* Heparin 5,000 UNIT/ML VIAL SQ SCH (05:09)
[2017-12-27] MEDS: Acetaminophen 325 MG TABLET PO PRN (05:17)
[2017-12-27] MEDS ORDERED: levoFLOXacin 750 MG TABLET PO SCH (09:00)
[2017-12-27] MEDS: hydrALAZINE 25 MG TABLET PO SCH (09:23)
[2017-12-27] MEDS: risperiDONE 0.25 MG TABLET PO SCH (09:24)
[2017-12-27] MEDS: Aspirin 81 MG TAB.CHEW PO SCH (09:24)
[2017-12-27] MEDS: Divalproex (12 HR) 250 MG TABLET PO SCH (09:25)
[2017-12-27] MEDS ORDERED: Oseltamivir Phosphate 30 MG CAPSULE PO SCH (09:45)
--- NOTE | 2017-12-27 11:00 | Discharge Summary ---
<JuliánEpi manzanares - Last Filed: 12/27/17 14:52> Date of Encounter: 12/27/17 Time of Encounter: 10:45 - Discharge Diagnosis (1) Acute respiratory failure with hypoxia Priority: Primary Status: Acute (2) HAP (hospital-acquired pneumonia) Priority: Secondary Status: Acute (3) Influenza A Priority: Secondary Status: Acute (4) Acute renal failure (ARF) Priority: Secondary Status: Resolved Qualifiers: Acute renal failure type: unspecified Qualified Code(s): N17.9 - Acute kidney failure, unspecified (5) Elevated troponin Priority: Secondary Status: Acute (6) Hypertension Priority: Secondary Status: Chronic Qualifiers: Hypertension type: essential hypertension Qualified Code(s): I10 - Essential (primary) hypertension (7) Dementia Priority: Secondary Status: Chronic Qualifiers: Dementia type: Alzheimer's disease Alzheimer's disease onset: late-onset Dementia behavioral disturbance: without behavioral disturbance Qualified Code (s): G30.1 - Alzheimer's disease with late onset; F02.80 - Dementia in other diseases classified elsewhere without behavioral disturbance; F02.80 - Dementia in other diseases classified elsewhere without behavioral disturbance; F02.80 - Dementia in other diseases classified elsewhere without behavioral disturbance (8) DVT prophylaxis Priority: Secondary Status: Acute - Discharge Medications Prescriptions: hydrALAZINE [HydrALAZINE] 50 mg PO TID #30 tablet Home Medications: Aspirin 81 mg PO DAILY 09/23/15 [History] Losartan [Cozaar] 50 mg PO DAILY 09/23/15 [History] Metoprolol [Lopressor] 25 mg PO BID 09/23/15 [History] Divalproex (12 HR) [Depakote (12 HR)] 250 mg PO BID 03/28/16 [History] risperiDONE [RisperDAL] 0.5 mg PO DAILY 03/28/16 [History] Donepezil [Aricept] 10 mg PO DAILY 12/23/17 [History] hydrALAZINE [HydrALAZINE] 50 mg PO TID #30 tablet 12/27/17 [Rx] Allergies/Adverse Reactions: 3 Allergy/AdvReac Type Severity Reaction Status Date / Time NSAIDS (Non-Steroidal Allergy See Verified 12/23/17 01:50 Anti-Inflamma Comments Penicillins Allergy See Verified 12/23/17 01:50 Comments Sulfa (Sulfonamide Allergy Hives Verified 12/23/17 01:50 Antibiotics) Date of admission: 12/24/17 12:39 Primary care physician: Rommel España MD Consults: 12/25/17 13:34 Consult to Physical Therapy [CONS] Routine Comment: Evaluate, develop and implement POC Reason for Consult: eval and treat 12/25/17 13:36 Consult to Occupational Therapy [CONS] Routine Comment: Evaluate, develop and implement POC Reason for Consult: eval and treat Discharging clinician: Epi Best Anticipated date of discharge: 12/27/17 - Patient Status Disposition: Transfer SNF Condition: Fair Functional capacity at discharge: uses cane/walker Overall status at discharge: patient is progressing back to baseline - Discharge Instructions Instructions: Hydralazine (By mouth), Influenza (DC), Influenza (GEN), Chronic Hypertension (DC) Follow Up With: Rommel España MD [Primary Care Provider] - Additional Instructions: Please follow with her primary care physician within one week from discharge. Take all medication as prescribed. - Diet and Activity Activity: increase activity as tolerated, resume usual activities as tolerated Diet: advance to your usual diet Hospital course: Ms. Sofia is a 87 year old female with past medical history of hypertension, dementia presented to emergency room with a chief complaint of shortness of breath and hypoxia. On presentation to emergency department, patient's was saturating oxygen at 80% on room air. She has no reported home O2 usage. She is coming from retirement. Lab results are significant for a WBC of 15.3, BUNs/creatinine of 35/1.43, ABG unremarkable. Upon and mildly elevated at 0.11 which is trended and adynamic. CMP of 287. Urine was negative for infection and saw was positive for influenza A. Chest x-ray concerning for left lower lobe consolidation likely pneumonia. Head CT was negative for acute changes. She was admitted to hospital for acute respiratory failure with hypoxia secondary to likely influenza a versus hospital-acquired pneumonia. During course of hospital stay, patient gradually improved. She was started on empiric therapy of vancomycin, Levaquin, Zosyn as well as Tamiflu which were De- escalated as patient improved to Levaquin. Her acute kidney injury did improve with gentle hydration and treating underlying illnesses. Patient was slightly hypertensive during end of stay, echo secondary to increased fluid and steroid usage. She was diuresed and did respond appropriately to increase of home hydralazine. Her most recent blood pressure was 97/69. She will be discharged to [facility] in stable medical condition. She was instructed to follow-up with primary care physician and take all medications as prescribed. All questions were answered and patient and daughter who is present at bedside are eager to go to nursing facility. - Time Spent with Patient Total time spent providing and/or coordinating discharge services: - Constitutional Vitals: Temp Pulse Resp BP Pulse Ox 98.2 F 87 14 186/94 90 12/27/17 07:10 12/27/17 07:10 12/27/17 07:10 12/27/17 07:10 12/27/17 07:10 General appearance: Present: A&O X 3, no acute distress Exam: Gen.: Vitals noted. No acute distress. AAOx3 HEENT: PERRL/EOMI, oropharynx clear, Normocephalic, atraumatic Cardiac: RRR, no murmur, +S1/S2 Pulmonary: CTA bilaterally, no wheezes, rales or rhonchi, equal chest expansion Abdomen: soft, nontender, BS noted, no guarding MSK: ROM intact, no joint swelling noted Extremities: no BLE edema, nontender calf, no cyanosis or clubbing Neuro: A&Ox3, moves all extremities, no focal deficits Psych: Appropriate mood and behavior <Manjinder Kolb - Last Filed: 12/27/17 18:37> Date of Encounter: 12/27/17 - Discharge Diagnosis (1) Acute respiratory failure with hypoxia Status: Acute (2) Influenza A Status: Resolved (3) Pneumonia Priority: Secondary Status: Suspected Qualifiers: Pneumonia type: due to other aerobic Gram-negative bacteria Laterality: left Lung location: lower lobe of lung Qualified Code(s): J15.6 - Pneumonia due to other Gram-negative bacteria (4) Hypertension Status: Chronic Qualifiers: Hypertension type: essential hypertension Qualified Code(s): I10 - Essential (primary) hypertension (5) Dementia Status: Chronic Qualifiers: Dementia type: Alzheimer's disease Alzheimer's disease onset: late-onset Dementia behavioral disturbance: without behavioral disturbance Qualified Code (s): G30.1 - Alzheimer's disease with late onset; F02.80 - Dementia in other diseases classified elsewhere without behavioral disturbance; F02.80 - Dementia in other diseases classified elsewhere without behavioral disturbance; F02.80 - Dementia in other diseases classified elsewhere without behavioral disturbance Date of admission: 12/24/17 12:39 Primary care physician: Rommel España MD Consults: 12/25/17 13:34 Consult to Physical Therapy [CONS] Routine Comment: Evaluate, develop and implement POC Reason for Consult: eval and treat 12/25/17 13:36 Consult to Occupational Therapy [CONS] Routine Comment: Evaluate, develop and implement POC Reason for Consult: eval and treat Hospital course: Ms. Sofia is a 87 year old female - Time Spent with Patient Total time spent providing and/or coordinating discharge services: 39min - Constitutional Vitals: Temp Pulse Resp BP Pulse Ox 97.8 F 60 14 97/69 93 12/27/17 11:28 12/27/17 11:28 12/27/17 11:28 12/27/17 11:28 12/27/17 11:28 - Attending Attestation I examined this patient and my medical decision-making was reviewed with the Resident Physician on 12/27/17. I agree with the documented findings, disposition and treatment plan as described except to the extent set forth below. Ms Sofia has been admitted for pneumonia and influenza. She is now afebrile and ready for discharge to SNF. Her BP meds were adjusted and it will need to be monitored at facility. Exam alert. Comfortable Mucus membranes dry Heart distant Lungs diminished Plan D/C to SNF.
--- NOTE | 2017-12-27 11:04 | Physician Discharge Referral ---
[facility] Referral Info Provider in Charge after Transfer: PCP Institutional Level of Care: Skilled - Diagnosis (1) Acute respiratory failure with hypoxia Priority: Primary Status: Acute (2) HAP (hospital-acquired pneumonia) Priority: Secondary Status: Acute (3) Influenza A Priority: Secondary Status: Acute (4) Acute renal failure (ARF) Priority: Secondary Status: Resolved (5) Elevated troponin Priority: Secondary Status: Acute (6) Hypertension Priority: Secondary Status: Chronic (7) Dementia Priority: Secondary Status: Chronic (8) DVT prophylaxis Priority: Secondary Status: Acute Prognosis: Fair Aware of Diagnosis: Patient, Family Aware of Prognosis: Patient, Family - Transfer Medications Prescriptions: hydrALAZINE [HydrALAZINE] 50 mg PO TID #30 tablet Home Medications: Aspirin 81 mg PO DAILY 09/23/15 [History] Losartan [Cozaar] 50 mg PO DAILY 09/23/15 [History] Metoprolol [Lopressor] 25 mg PO BID 09/23/15 [History] Divalproex (12 HR) [Depakote (12 HR)] 250 mg PO BID 03/28/16 [History] risperiDONE [RisperDAL] 0.5 mg PO DAILY 03/28/16 [History] Donepezil [Aricept] 10 mg PO DAILY 12/23/17 [History] hydrALAZINE [HydrALAZINE] 50 mg PO TID #30 tablet 12/27/17 [Rx] Allergies/Adverse Reactions: 3 Allergy/AdvReac Type Severity Reaction Status Date / Time NSAIDS (Non-Steroidal Allergy See Verified 12/23/17 01:50 Anti-Inflamma Comments Penicillins Allergy See Verified 12/23/17 01:50 Comments Sulfa (Sulfonamide Allergy Hives Verified 12/23/17 01:50 Antibiotics) - Respiratory Orders Oxygen / L per min (2) Smoking Cessation: Smoking cessation has been advised. For more information, call the [place] Tobacco Quit Line at 9-054-AEBK-NOW. - Advance Directives Code Status: Full Code - Mobility Orders Ambulate - Rehabiliation Orders Rehab Potential: Fair - Diet Orders Regular CERTIFICATION: I certify that the transfer of the above named patient to an Extended Care Facility is necessary for the continuing treatment of the diagnosis listed. The above information is true and accurate reflection of patient's current condition. Confidential - Redisclosure prohibited without a patient's written consent.
[2017-12-27 11:33] VITALS: BP 97/69
== END 2017-12-27 15:23 | DRG 177 ==
LOC: 2NENU 01:37 → EMEROO 01:37 → 2NENU 05:56 → SUATTDRO 12-24 12:39
PROVIDERS: ADMIT Pediatrics; ATTEND Internal Medicine